=== PATIENT | female | born 1995 | race Caucasian/White ===

== ENCOUNTER → 2024-01-23 08:05 | Outpatient (REF) | payer BC, SELFPAY | LOC: WDC 08:05 | PROVIDERS: ATTENDING PHYSICIAN Obstetrics & Gynecology | DX: N63.11 Unspecified lump in the right breast, upper outer quadrant (principal) | CPT/HCPCS: 76642 ==

== ENCOUNTER → 2024-02-11 16:41 | Outpatient (REF) | payer BC, SELFPAY | LOC: PNTC 16:41 | PROVIDERS: ATTENDING PHYSICIAN Obstetrics & Gynecology | DX: O24.419 Gestational diabetes mellitus in pregnancy, unspecified control (principal) | CPT/HCPCS: 76816 ==

== ENCOUNTER → 2024-03-11 08:15 | Outpatient (REF) | payer BC, SELFPAY | LOC: PNTC 08:15 | PROVIDERS: ATTENDING PHYSICIAN Obstetrics & Gynecology | DX: O24.419 Gestational diabetes mellitus in pregnancy, unspecified control (principal) | CPT/HCPCS: 76816 ==

== ENCOUNTER 2024-04-05 19:57 | Inpatient (IN) | payer BC, SELFPAY ==
[2024-04-05 20:19] VITALS: BMI 24.9
[2024-04-05 20:22] VITALS: BP 130/73
[2024-04-05] MEDS: LR 1000 IV ×2 (20:30→22:45)
[2024-04-05 20:31] LABS: Glucose - Point of Care 79 mg/dl (70-99)
[2024-04-05 20:37] LABS: % Basophils 0.2 % (0-2); % Eosinophils 0.3 % (0-6); % Immature Granulocytes 0.8 % (0-0.5); % Lymphocytes 13.6 % (20.5-51.1); % Monocytes 6.7 % (1.7-9.3); % Neutrophils 78.4 % (42.2-75.2); Absolute Eosinophils 0.1 10^3/uL (0-0.7); Absolute Immature Granulocytes 0.1 10^3/uL (0-0.05); Absolute Lymphocytes 2.2 10^3/uL (1.2-3.4); Absolute Monocytes 1.1 10^3/uL (0.1-0.6); Absolute Neutrophils 12.5 10^3/uL (1.4-6.5); Hematocrit 34.5 % (37.0-47.0); Hemoglobin 12.7 g/dL (12.0-16.0); Mean Corp Hgb Conc. 36.8 g/dL (33.0-37.0); Mean Corpuscular Hgb 30.9 pg (27.0-31.0); Mean Corpuscular Volume 83.9 fL (81.0-99.0); Mean Platelet Volume 10.9 fL (7.4-10.4); Nucleated Red Blood Cells % 0 %; Platelet Count 197 10^3/uL (130-400); Red Blood Cell Count 4.11 10^6/uL (4.20-5.40); Red Cell Dist. Width 12.7 % (11.5-14.5); White Blood Cell Count 15.9 10^3/uL (4.8-10.8)
[2024-04-05] MEDS: SUBLIMAZE 100 MCG EPIDURAL (21:31)
[2024-04-05] MEDS: FENTANYL/BUPIVACAINE 100 EPIDURAL (21:31)
[2024-04-06 00:39] LABS: Glucose - Point of Care 89 mg/dl (70-99)
[2024-04-06] MEDS: PITOCIN 30 UNITS/NSS 500 ML IV (01:53)
[2024-04-06] MEDS: PRENATAL PLUS 1 TABLET PO (08:04)
[2024-04-06] MEDS: MOTRIN 600 MG PO (19:42)
[2024-04-07 04:38] LABS: Hematocrit 33.1 % (37.0-47.0); Hemoglobin 11.6 g/dL (12.0-16.0)
[2024-04-07] MEDS: HYPERRHO S-D 1500 UNIT IM (11:22)
[2024-04-07] MEDS: PRENATAL PLUS 1 TABLET PO (11:22)
[2024-04-07 18:41] LABS: Syphilis/T. pallidum Ab Reflex Negative (Negative)
--- NOTE | 2024-04-08 03:07 | DOWNTIME ---
There was a [employer] Downtime on 04/08/2024 from 0100 to 04/08/2024 at 0252. Downtime documentation of patient's care, including medication administrations, has been reconciled in the electronic record per guidelines. Refer to the
patient's paper chart under the miscellaneous tab to see printed paper medication records and downtime forms.
[2024-04-08] MEDS: PRENATAL PLUS 1 TABLET PO (08:00)
== END 2024-04-08 10:44 | disposition home or self-care (01) | DRG 807 ==
LOC: LDRP 19:57
PROVIDERS: ADMITTING PHYSICIAN Obstetrics & Gynecology
PROC: 10E0XZZ Delivery of Products of Conception, External Approach (ICD-10-PCS; 2024-04-06)
PROC: 0UQMXZZ Repair Vulva, External Approach (ICD-10-PCS; 2024-04-06)
PROC: 0HQ9XZZ Repair Perineum Skin, External Approach (ICD-10-PCS; 2024-04-06)
DX: O70.0 First degree perineal laceration during delivery (principal); Z37.0 Single live birth; O24.429 Gestational diabetes mellitus in childbirth, unspecified control; Z3A.39 39 weeks gestation of pregnancy
CPT/HCPCS: 88307; 82962; 85014; 85018; 85025; 85461; 86780; 86850; 86870; 86900; 86901; J2790